=== PATIENT | female | born 1995 | race Two or more races ===

== ENCOUNTER 2018-09-27 00:22 | Observation (INO) | payer MEDICAID ==
--- NOTE | 2018-09-27 03:04 | PDGENHP ---
History and Physical History and Physical: Care: [facility] HPI: Kamryn is a 22yo with IUP@ 20 weeks that presents to L&D with complaints of lower abdominal pain worse with walking. She also reports vaginal/groin pain. She states the pain is improved with rest. She denies any dysuria/urgency/ frequency. She reports +FM. She denies any contractions/LOF/VB. EDC: 02/13/19 which is based on LMP which is known and consistent with Ultrasound @ 12wks (per pt). Her is complicated by: none (per pt) Review of Systems: Constitutional: Denies any fever, chills, or fatigue HEENT: denies any visual changes, difficulty swallowing, hearing loss Cardiovascular: Denies any chest pain, palpitations, leg swelling Respiratory: denies any cough, wheezing, or shortness of breathe GI: Denies any nausea, vomiting, diarrhea, constipation, reports +lower abdominal pain : denies any dysuria, urgency, frequency, vaginal bleeding Musculoskeletal: denies any muscle or bone pain Skin: denies any rashes Neuro: denies any headache, seizures, lightheadedness, dizziness, or loss of consciousness Psychiatric: denies any depression, anxiety, or SI/HI thoughts HISTORY: Previous OB history: 2013 6#3, EAB x1 Past medical history: denies any Past surgical history: denies Social: Denies any alcohol, tobacco, or drug use. Family history: Not relevant Medications: PNV Allergies (list reaction): NKDA LABS: unknown PHYSICAL EXAM: Constitutional: WN, A&Ox3 HEENT: normocephalic atraumatic, supple Skin: Warm, dry, intact Heart: RRR, no murmur Chest: CTA-B back: Neg CVA tenderness Abdomen: Soft, nontender, gravid SVE: deferred Extremities: no edema, negative homans sign Neuro: grossly normal Psych: normal affect assessment: FHT 150 Contractions: toco none Assessment: 1) 22 yo with IUP@ 20wks 2) no evidence of labor 3) round ligament pain/normal discomforts 4) +FHT's Plan: 1) d/c home at this time 2) encouraged increase PO fluids 3) abdominal binder/maternity belt given 4) urine cx sent- will tx if indicated 5) keep next sched appt [facility] 6) warning S&S discussed/aware when to call/return to L&D Today's visit was approximately 45 min, of which >50% of visit 25 min, was spent face to face with pt on direct counseling/coordination of care.
== END 2018-09-27 03:16 | disposition home or self-care (01) ==
LOC: FLD 00:22
PROVIDERS: ADMIT Advanced Practice Midwife; ATTEND Advanced Practice Midwife
DX: O26.892 Other specified pregnancy related conditions, second trimester (principal); R10.2 Pelvic and perineal pain; Z3A.20 20 weeks gestation of pregnancy

== ENCOUNTER 2018-11-16 03:05 | Observation (INO) | payer MEDICAID ==
[2018-11-16] MEDS: LOPERAMIDE HCL 2 MG CAP PO PRN ×2 (04:15→06:46)
[2018-11-16 04:16] LABS: PLATELET COUNT 344 10^3/uL (150-400)
[2018-11-16] MEDS ORDERED: LR 1,000 ML IV ONE (05:00)
== END 2018-11-16 07:17 | disposition home or self-care (01) ==
LOC: FLD 03:05
PROVIDERS: ADMIT Advanced Practice Midwife; ATTEND Advanced Practice Midwife
DX: Z03.79 Encounter for other suspected maternal and fetal conditions ruled out (principal); Z3A.27 27 weeks gestation of pregnancy
CPT/HCPCS: 59025; G0378

== ENCOUNTER 2019-02-08 17:49 | Observation (INO) | payer MEDICAID ==
--- NOTE | 2019-02-08 19:12 | OBGCSDC ---
General Delivery Information - General Info : 3 Para: 1 Abortions: 1 Admission Date: 02/08/19 - Hospital Course Antepartum: 02/08/19 19:11 pain has resolved, reactive NST at this visit. [place] Data TOMMY: 02/13/19 Gestational Age: 39 week(s) and 2 day(s) Discharge Information - Discharge Information Condition: Good
== END 2019-02-08 19:20 | disposition home or self-care (01) ==
LOC: FLD 17:49
PROVIDERS: ADMIT Advanced Practice Midwife; ATTEND Advanced Practice Midwife
DX: O99.89 Other specified diseases and conditions complicating pregnancy, childbirth and the puerperium (principal); R10.32 Left lower quadrant pain
CPT/HCPCS: 59025; G0378

== ENCOUNTER 2019-02-13 01:22 | Inpatient (IN) | payer MEDICAID, OTHER ==
[2019-02-13] MEDS ORDERED: AMMONIA AROMATIC 1 EACH AMP IH PRN (01:33)
[2019-02-13] MEDS ORDERED: TERBUTALINE SULFATE 1 MG/ML VIAL IV PRN (01:33)
[2019-02-13] MEDS ORDERED: MISOPROSTOL 200 MCG TAB PO PRN (01:33)
[2019-02-13] MEDS ORDERED: IBUPROFEN 600 MG TAB PO PRN (01:33)
[2019-02-13] MEDS ORDERED: OLIVE OIL 118 ML BTL MISC PRN (01:33)
[2019-02-13] MEDS ORDERED: LIDOCAINE 1% 300 MG/30 ML SDV SC PRN (01:33)
[2019-02-13] MEDS ORDERED: EPSOM SALT 454 GM TP PRN (01:33)
[2019-02-13] MEDS ORDERED: OXYTOCIN/RINGERS LACTATE 1,000 ML IV PRN (01:33)
[2019-02-13] MEDS ORDERED: LR 1,000 ML IV PRN (01:33)
[2019-02-13 01:51] LABS: PLATELET COUNT 353 10^3/uL (150-400)
--- NOTE | 2019-02-13 02:08 | PDGENHP ---
History and Physical History and Physical: CARE: [facility] HPI: Patient is a 23 yo G 3 P 1 @ 40 weeks that presents to L&D with complaints of SROM and strong uterine contractions for past 2 hours. EDC: 02/13/19 which is based on LMP: 04/06/18 which is known, but inconsistent with Ultrasound 6 weeks. Her is complicated by: BMI>30, late PNC at 22 weeks, EIF in L ventricle, rubella non-immune Review of Systems: Constitutional: Denies any fever, chills, or fatigue HEENT: denies any visual changes, difficulty swallowing, hearing loss Cardiovascular: Denies any chest pain, palpitations, leg swelling Respiratory: denies any cough, wheezing, or shortness of breathe GI: Denies any nausea, vomiting, diarrhea, constipation : denies any dysuria, urgency, frequency, vaginal bleeding Musculoskeletal: denies any muscle or bone pain Skin: denies any rashes Neuro: denies any headache, seizures, lightheadedness, dizziness, or loss of consciousness Psychiatric: denies any depression, anxiety, or SI/HI thoughts HISTORY: Previous OB history: of 6#3oz boy in 2012, EAB 2014 Social history: , dental hygienist Family history: non-contributory Past medical history: denies Past surgical history: no Medications: PNV Allergies (list reaction): NKDA LABS: Rh: O+ ABS: Neg Rubella: NON- Immune HbsAg: NR HIV: NR VDRL: NR 1hr: 103 GC: Neg Chlamydia: Neg Pap: Needs PP GBS: neg BMI: (prepreg) 34 PHYSICAL EXAM: Constitutional: WN, A&Ox3 HEENT: normocephalic atraumatic, supple Heart: RRR, no murmur Chest: CTA-B Skin: warm, dry, intact Abdomen: Soft, nontender, gravid SVE: 6/90/-2 Extremities: trace edema, negative homans sign Neuro: grossly normal Psych: normal affect assessment: FHT baseline 145, +accels, no decels, moderate variability Contractions: toco q 4 min Assessment: 1) 23 yo G 3 P 1 with IUP @ 40 weeks 2) SROM, spontaneous labor 3) GBS neg 4) Cat 1 FHR tracing Plan: 1) Admit to L&D 2) Anticipate
[2019-02-13] MEDS ORDERED: CALCIUM CARBONATE 500 MG CHEWABLE TAB PO ONE (02:55)
[2019-02-13] MEDS ORDERED: CALCIUM CARBONATE 500 MG CHEWABLE TAB PO PRN (02:56)
--- NOTE | 2019-02-13 04:13 | OBDEL ---
Info Type: Vaginal Presentation at Delivery: Vertex L&D Analgesia/Anesthesia Type: Nitrous GBS+: No - Hospital Course Intrapartum: 02/13/19 04:08 pt progressed rapidly to complete after admission Indications for Delivery: Spontaneous Labor, SROM Vaginal Delivery - Delivery Provider Delivery Physician/CNM: Priscilla Campos - Labor and Delivery Onset of Contractions Date: 02/12/19 Onset of Contractions Time: 22:30 Onset of Contractions Type: Spontaneous Rupture of Membranes Date: 02/13/19 Rupture of Membranes Time: 12:41 Rupture of Membranes Type: Spontaneous Amniotic Fluid Color: Clear Dilation Complete Date: 02/13/19 Dilation Complete Time: 03:45 Placenta Delivery Date: 02/13/19 Placenta Delivery Time: 04:00 Total Hours of Labor: 5 Vaginal Sponge Count Correct: Yes Vaginal Needle Count Correct: Yes Vaginal Sweep Performed: Yes EBL: 200 Delivery Events: None [place] Data TOMMY: 02/13/19 Gestational Age: 40 week(s) and 0 day(s) [place] Delivery Date: 02/13/19 Delivery Time: 03:46 Sex of Infant: Female Score (1 Min): 8 Score (5 Min): 9 ICD10 Worksheet Patient Problems: Problems Problem Status Onset (normal spontaneous vaginal delivery) Acute Abdominal pain during in third trimester Acute - ICD10 Problem Qualifiers (1) (normal spontaneous vaginal delivery)
[2019-02-13] MEDS ORDERED: OXYTOCIN/RINGERS LACTATE 1,000 ML IV SCH (04:30)
[2019-02-13] MEDS: DOCUSATE SODIUM 100 MG CAP PO PRN (10:51)
[2019-02-13] MEDS: ACETAMINOPHEN 325 MG TAB PO PRN ×2 (10:52→17:32)
[2019-02-13] MEDS: IBUPROFEN 600 MG TAB PO PRN ×3 (10:52→23:14)
--- NOTE | 2019-02-13 13:11 | OBPP ---
Progress Note Assessment/Plan: Assessment: [id number] s/p PPD#0 Plan: routine pp care support ambulate/rest plan d/c home tomorrow 02/13/19 09:00 Subjective/ Course: 02/13/19 13:10 Pt doing well, happy with . She is without difficulty. She denies any pain or heavy bleeding. she does report 3 cm clot today- but denies any additional clots or heavy bleeding. She is ambulating and voiding without difficulty. Objective: 02/13/19 01:45 Patient ABO/Rh O POSITIVE 02/13/19 01:45 Temp Pulse Resp BP Pulse Ox 36.6 C 104 H 20 126/69 H 02/13/19 08:25 02/13/19 08:25 02/13/19 08:25 02/13/19 08:25 Uterine Position/Fundal Height: Umbilicus -2, Midline Uterine Tone: Firm
[2019-02-14] MEDS: IBUPROFEN 600 MG TAB PO PRN ×3 (05:43→19:34)
[2019-02-14] MEDS: ACETAMINOPHEN 325 MG TAB PO PRN ×3 (09:25→22:42)
[2019-02-14] MEDS: DOCUSATE SODIUM 100 MG CAP PO PRN ×2 (09:25→19:35)
[2019-02-14 20:11] VITALS: BP 136/74
[2019-02-15] MEDS: IBUPROFEN 600 MG TAB PO PRN ×2 (01:27→08:34)
[2019-02-15] MEDS: ACETAMINOPHEN 325 MG TAB PO PRN (05:16)
[2019-02-15] MEDS: DOCUSATE SODIUM 100 MG CAP PO PRN (08:34)
--- NOTE | 2019-02-15 09:23 | OBGCSDC ---
General Delivery Information - General Info : 3 Para: 2 Abortions: 0 Type: Vaginal L&D Analgesia/Anesthesia Type: None Admission Date: 02/13/19 Labs: Patient ABO/Rh O POSITIVE 02/13/19 01:45 Hct 34.3 % (38.0-47.0) L 02/13/19 01:45 - Hospital Course Intrapartum: 02/13/19 04:08 pt progressed rapidly to complete after admission : 02/13/19 13:10 Pt doing well, happy with . She is without difficulty. She denies any pain or heavy bleeding. she does report 3 cm clot today- but denies any additional clots or heavy bleeding. She is ambulating and voiding without difficulty. 02/15/19 09:22 S) Pt doing well, reports min pain and bleeding. she is ambulating and voiding without difficulty. She is . She desires discharge home today. O) VSS, afebrile constitutional: WNF, A&Ox3 HEENT: normocephalic, atraumatic, supple Heart: RRR, No murmur Chest: CTA-B Breasts: soft, nontender, not engorged, nipples Abdomen: Soft, nontender Uterus: Firm at U-2 Lochia: Minimal rubra Perineum: Intact, healing well Extremities: Trace edema, and negative Eyal's sign Neuro: Grossly normal A) 23-year-old S/P PPD#2 P) Discharge home today Continue Pelvic rest x6wks Discussed danger signs (infection, preeclampsia, depression, heavy bleeding, etc ) RTO in 2/4/6 weeks Vaginal - Delivery Provider Delivery Physician/CNM: Priscilla Campos - Diagnosis Labor: Spontaneous Rupture of Membranes Type: Spontaneous Amniotic Fluid Color: Clear Delivery Events: None - Delivery EBL: 200 [place] Data TOMMY: 02/13/19 Gestational Age: 40 week(s) and 2 day(s) [place] Delivery Date: 02/13/19 Delivery Time: 03:46 Sex of Infant: Female [place] Weight (gm): 3400 kg Score (1 Min): 8 Score (5 Min): 9
== END 2019-02-15 11:30 | disposition home or self-care (01) | DRG 807 ==
LOC: FLD 01:22 → FOB 07:17
PROVIDERS: ADMIT Advanced Practice Midwife; ATTEND Advanced Practice Midwife
PROC: 10E0XZZ Delivery of Products of Conception, External Approach (ICD-10-PCS; principal; 2019-02-13)
DX: O80 Encounter for full-term uncomplicated delivery (principal); Z3A.40 40 weeks gestation of pregnancy; Z37.0 Single live birth